=== PATIENT | female | born 1980 | race Caucasian/White ===

== ENCOUNTER 2019-09-24 01:00 | Emergency (ER) | payer OTHER ==
[~2019-09-24] VITALS: Ht 170.2 cm; Wt 72.6 kg
[2019-09-24 01:18] VITALS: BP 114/76
== END 2019-09-24 01:19 | disposition home or self-care (01) ==
LOC: ER 01:13
DX: K08.89 Other specified disorders of teeth and supporting structures (principal)
CPT/HCPCS: A4663

== ENCOUNTER 2022-10-07 08:51 | Emergency (ER) | payer OTHER ==
[~2022-10-07] VITALS: Ht 170.2 cm; Wt 77.1 kg
--- NOTE | 2022-10-07 09:11 | NUR ---
DR JOHNSON AT BEDSIDE FOR EVALUATION.
[2022-10-07] MEDS ORDERED: MAG HYDROX/AL HYDROX/SIMETH 30 ML LIQUID UDC ONE (09:12)
[2022-10-07] MEDS ORDERED: LIDOCAINE VISCUS 2% 15 ML UDC ONE (09:12)
[2022-10-07] MEDS ORDERED: MAG HYDROX/AL HYDROX/SIMETH 30 ML LIQUID UDC PO ONE (09:15)
[2022-10-07] MEDS ORDERED: LIDOCAINE VISCUS 2% 15 ML UDC MM ONE (09:15)
[2022-10-07 09:23] LABS: HEMATOCRIT 38.2 % (31.2-41.9); MEAN CORPUSCULAR HEMOGLOBIN 28.2 uug (24.7-32.8); PLATELET COUNT (AUTO) 296 K/uL (179-408)
[2022-10-07 09:42] LABS: ALANINE AMINOTRANSFERASE 31 U/L (14-59); ALKALINE PHOSPHATASE 98 U/L (50-136); ASPARTATE AMINOTRANSFERASE 16 U/L (15-37); BILIRUBIN,DIRECT 0.1 mg/dL (0.0-0.2); BILIRUBIN,TOTAL 0.2 mg/dL (0.2-1.0); CHLORIDE 101 mmol/L (98-107); CREATININE 1.2 mg/dL (0.6-1.3); GLUCOSE 136 mg/dL (74-106); LIPASE 45 U/L (73-393); POTASSIUM 4.5 mmol/L (3.5-5.1); UREA NITROGEN, BLOOD 19 mg/dL (7-18)
[2022-10-07 09:50] LABS: CARBON DIOXIDE 30 mmol/L (21-32)
--- NOTE | 2022-10-07 10:30 | NUR ---
Pt resting in gurney with NAD noted. Pending repeat troponin.
--- NOTE | 2022-10-07 11:20 | NUR ---
Repeat troponin drawn, repeat EKG done.
[2022-10-07] MEDS ORDERED: OMEP20TA5 PO (11:51)
[2022-10-07] MEDS ORDERED: ONDA4TAB11 PO (11:51)
--- NOTE | 2022-10-07 12:00 | NUR ---
Patient discharged to home in stable condition. Written and verbal after care instructions given. Patient verbalizes understanding of instructions. Stressed follow up or return to ER for worsening s/s.
== END 2022-10-07 12:01 | disposition home or self-care (01) ==
LOC: ER 08:55
DX: R10.13 Epigastric pain (principal); K21.9 Gastro-esophageal reflux disease without esophagitis; Z87.11 Personal history of peptic ulcer disease; Z87.19 Personal history of other diseases of the digestive system; Z87.891 Personal history of nicotine dependence
CPT/HCPCS: 36415; 83690; 84484; 85025; 93005; A4663